=== PATIENT | male | born 1970 | race Two or more races ===

== ENCOUNTER 2024-06-16 09:34 | Inpatient (IN) | payer MEDICAID, OTHER ==
[~2024-06-16] VITALS: Ht 172.7 cm; Wt 85.6 kg
[2024-06-16] MEDS: SODIUM CHLORIDE 0.9% 1,000 ML IV ONE ×2 (10:15)
[2024-06-16] MEDS: NALOXONE HCL 1MG/ML 2ML SYRINGE IV ONE (10:15)
[2024-06-16 11:11] LABS: Basophils # (auto) 0 10 ^3/uL (0-0.2); Basophils % (auto) 0.5 % (0.0-2.0); Eosinophils # (auto) 0 10 ^3/uL (0-0.8); Eosinophils % (auto) 0.4 % (0.0-7.0); Hematocrit 43.5 % (41.0-53.0); Hemoglobin 15.1 g/dL (13.5-17.5); Lymphocytes # (auto) 1.8 10 ^3/uL (0.4-5.4); Lymphocytes % (auto) 16.7 % (10.0-50.0); Mean Corpuscular Hemoglobin 31.4 pg (28.0-32.0); Mean Corpuscular Hgb Conc. 34.8 g/dL (32.0-36.0); Mean Corpuscular Volume 90.1 fL (80.0-100.0); Monocytes # (auto) 0.8 10 ^3/uL (0-1.3); Monocytes % (auto) 7.1 % (0.0-12.0); Neutrophils # (auto) 8.1 10 ^3/uL (1.6-8.6); Neutrophils % (auto) 75.3 % (37.0-80.0); Platelet Count (auto) 187 10^3/uL (140-450); Red Blood Cells 4.82 10^6/uL (4.5-5.90); Red Cell Distribution Width 13.3 % (11.8-14.3); White Blood Cell 10.7 10^3/uL (4.4-10.8)
[2024-06-16 11:28] LABS: Alanine Aminotransferase 71 U/L (7-40); Albumin 4.5 g/dL (3.2-4.8); Alkaline Phosphatase 79 U/L (46-116); Anion Gap 7 (5-15); Aspartate Aminotransferase 44 U/L (13-40); BUN/Creatinine Ratio 9.1 (10.0-20.0); Bilirubin, Total 1.1 mg/dL (0.2-1.0); Blood Urea Nitrogen 8 mg/dL (9-23); Calcium 9.5 mg/dL (8.7-10.4); Carbon Dioxide 25 mmol/L (20-30); Chloride 102 mmol/L (98-107); Glucose 88 mg/dL (74-106); Potassium 4.1 mmol/L (3.5-5.1); Sodium 134 mmol/L (136-145); Total Protein 7.8 g/dL (5.7-8.2)
[2024-06-16 11:49] VITALS: PULSE 53; RESP 18; O2SAT 98
[2024-06-16 11:53] LABS: Urine Bacteria None Seen /hpf (None Seen)
[2024-06-16 12:07] LABS: Urine Blood Negative /uL (Negative); Urine Clarity Clear (Clear); Urine Color Yellow (Yellow); Urine Protein, UAD TRACE (Negative); Urine Specific Gravity 1.017 (1.001-1.035); Urine Urobilinogen Normal (Negative); Urine WBC 1 /hpf (0 - 3)
[2024-06-16 13:11] LABS: Amphetamine Screen, Urine Neg (NEGATIVE); Benzodiazephine Screen, Urine Neg (NEGATIVE)
[2024-06-16 13:12] LABS: Barbiturate Scree,Urine Neg (NEGATIVE); Cannabinoid Screen, Urine Neg (NEGATIVE); Cocaine Screen, Urine Neg (NEGATIVE); Opiate Scree,Urine Pos (NEGATIVE); Phencyclidine Screen, Urine Neg (NEGATIVE)
[2024-06-16 21:49] VITALS: BP 151/84; PULSE 73; RESP 18; RESP 20; TEMP 98.2; O2SAT 95
[2024-06-16] MEDS ORDERED: TRAZ-227 PO (22:48)
[2024-06-17] VITALS (8 sets, daily range): BP systolic 105–151; BP diastolic 61–93; PULSE 60–78; RESP 16–20; TEMP 97.9–98.6; O2SAT 93–97
[2024-06-17] MEDS: ENOXAPARIN SOD 40 MG/0.4 ML SYRINGE SC SCH (10:00)
[2024-06-17] MEDS: HYDROcodone-ACET 5/325MG TAB PO PRN (22:19)
[2024-06-18] VITALS (9 sets, daily range): BP systolic 149–163; BP diastolic 75–98; PULSE 53–99; RESP 18–21; TEMP 97.9–98.8; O2SAT 96–97
[2024-06-18] MEDS ORDERED: LORazepam 2MG/ML-1ML VIAL IV PRN ×2
[2024-06-18] MEDS: OXcarbazepine 300 MG TAB PO ONE (00:12)
[2024-06-18] MEDS: OXcarbazepine 300 MG TAB PO SCH (08:11)
[2024-06-18] MEDS: HYDROmorphone HCL 2 MG/ML VL/or syr IV PRN (09:58)
[2024-06-18] MEDS ORDERED: hydrALAZINE HCL 20 MG/ML VL IV PRN (14:45)
[2024-06-18] MEDS: NICOTINE 14 MG/24HR TOPICAL PATCH TD SCH (15:34)
[2024-06-18] MEDS: METOPROLOL TARTRATE 25 MG TAB PO SCH (15:41)
[2024-06-19] VITALS (8 sets, daily range): BP systolic 126–175; BP diastolic 69–95; PULSE 69–87; RESP 18–20; TEMP 98.1–98.7; O2SAT 94–99
[2024-06-20 01:00] VITALS: BP 128/83; PULSE 82; RESP 20; TEMP 98; O2SAT 96
[2024-06-20 05:00] VITALS: BP 159/93; PULSE 75; RESP 20; TEMP 97.8; O2SAT 96
[2024-06-20 08:00] VITALS: PULSE 84
[2024-06-20 09:21] VITALS: BP 147/81; PULSE 69; RESP 20; TEMP 98.3; O2SAT 98
== END 2024-06-20 11:48 | DRG 917 ==
LOC: EDBD 09:34 → EEVIPCON 09:34 → ER 09:34 → EDUNIT# 09:34 → TELE 13:42 → TELE-WESTW 21:20
PROVIDERS: ADMIT Internal Medicine; ATTEND Internal Medicine
DX: T50.991A Poisoning by other drugs, medicaments and biological substances, accidental (unintentional), initial encounter (principal); G92.8 Other toxic encephalopathy; G40.101 Localization-related (focal) (partial) symptomatic epilepsy and epileptic syndromes with simple partial seizures, not intractable, with status epilepticus; G89.29 Other chronic pain; F15.10 Other stimulant abuse, uncomplicated; G40.401 Other generalized epilepsy and epileptic syndromes, not intractable, with status epilepticus; F11.10 Opioid abuse, uncomplicated; F17.200 Nicotine dependence, unspecified, uncomplicated; M54.50 Low back pain, unspecified; Z82.49 Family history of ischemic heart disease and other diseases of the circulatory system; Z83.3 Family history of diabetes mellitus; Y92.89 Other specified places as the place of occurrence of the external cause
CPT/HCPCS: 36415; 70450; 70551; 71045; 80053; 80307; 81001; 82962; 84484; 85025; 87081; 93306; 95819; 97110; 97116; 97163; 99291; G0378